=== PATIENT | female | born 1945 | race Caucasian/White ===

== ENCOUNTER 2024-02-01 12:12 | Emergency (ER) | payer OTHER, SELFPAY ==
[2024-02-01 12:14] VITALS: BP 168/80
[2024-02-01 12:30] VITALS: BMI 29.2
[2024-02-01 12:48] LABS: % Basophils 0.3 % (0-2); % Eosinophils 0.3 % (0-6); % Immature Granulocytes 0.3 % (0-0.5); % Lymphocytes 9.7 % (20.5-51.1); % Monocytes 3.2 % (1.7-9.3); % Neutrophils 86.2 % (42.2-75.2); Absolute Lymphocytes 0.7 10^3/uL (1.2-3.4); Absolute Monocytes 0.2 10^3/uL (0.1-0.6); Absolute Neutrophils 6.2 10^3/uL (1.4-6.5); Hematocrit 34.4 % (37.0-47.0); Hemoglobin 11.6 g/dL (12.0-16.0); Mean Corp Hgb Conc. 33.7 g/dL (33.0-37.0); Mean Corpuscular Hgb 26.4 pg (27.0-31.0); Mean Corpuscular Volume 78.2 fL (81.0-99.0); Mean Platelet Volume 9.3 fL (7.4-10.4); Nucleated Red Blood Cells % 0 %; Platelet Count 241 10^3/uL (130-400); Red Cell Dist. Width 14.1 % (11.5-14.5); White Blood Cell Count 7.2 10^3/uL (4.8-10.8)
[2024-02-01 13:02] LABS: ALT (SGPT) 16 U/L (0-35); AST (SGOT) 23 U/L (14-36); Albumin 4.6 g/dl (3.5-5.0); Alkaline Phosphatase 64 U/L (38-126); Blood Urea Nitrogen 16 mg/dl (7-17); Calcium 9.8 mg/dl (8.4-10.2); Carbon Dioxide 26 mmol/L (22-30); Chloride 97 mmol/L (98-107); Estimated Creatinine Clearance 49 ml/min; Glucose 147 mg/dl (70-99); Potassium 4.1 mmol/L (3.5-5.1); Sodium 132 mmol/L (135-145); Total Bilirubin 0.3 mg/dl (0.2-1.3); Total Protein 7.2 g/dl (6.3-8.2); eGFR > 60.00
[2024-02-01 13:23] VITALS: BP 143/55
--- NOTE | 2024-02-01 13:24 | ED.GENMED ---
Addendum entered and electronically signed by Tarun Cortez Jr., PA-C 02/04/24 08:11:
02/04/2024, 8 AM: Pt contacted claims to have significant improvement of symptoms. Intermediate results for ciprofloxacin. No change at this time does have close follow-up.
Original Note:
History of Present Illness
General
Chief Complaint: Abdominal Symptoms
Time Seen by Provider: 02/01/24 12:39
History of Present Illness
History of Present Illness:
78-year-old female presents to the emergency department for evaluation of left lateral abdominal pain for the past 2 days. Pain is sharp and colicky in nature associated nausea vomiting and chills. No fevers or sweating. Denies chest pain or
shortness of breath. Denies diarrhea. Denies any lower urinary tract voiding symptoms.
Past History
Past History
ED Past Medical History: CAD, GERD, HTN, Hypercholesterolemia and NIDDM
ED Past Surgical History: Cardiac (Cardiac stent 1995), Gynecological (Hysterectomy), Orthopedic (Lumbar surgery 2022, [facility]TH[facility]) and Other (appendix)
Social History
Tobacco: Non-smoker
Alcohol: None
Drug: None
Personal:
Living: with family
Employment: Retired
Review of Systems
Review of Systems
Allergies reviewed?: Yes
All Other Systems: ROS reviewed and negative except as documented in HPI and ROS
Phy Exam
Physical Exam
Physical Exam:
GEN: Well appearing, NAD, WDWN
Eyes: PERRLA, EOMs intact, no scleral icterus
HENT: NCAT, oral mucosa moist, no JVD, no cervical adenopathy.
Lungs: CTAB, no wheezes, rales, rhonchi, normal chest wall excursion
Cardiac: RRR, no M/R/G, no peripheral edema. Radial pulses 2+ bilat
Abdomen: S, NT, ND, NABS, no masses or hepatosplenomegaly
Neuro: AO x 3
MSK: No gross deformity or ecchymosis. No edema. No digital clubbing
Skin: No rashes, petechiae. Normal color, no pallor or jaundice.
Psych: Calm, cooperative, proper hygiene
Course
Orders/Labs/Results
Orders:
Orders
02/01/24 12:39
CMP [Comprehensive Metabolic Panel] Urgent
Complete Blood Count/With Diff Urgent
02/01/24 12:46
0.9% Sodium Chloride 1000 ml [Nss] 1,000 ml IV BOLUS
Ketorolac [Toradol] 15 mg IV NOW STA
02/01/24 12:47
CT Abd/pel Without Iv Or Oral Urgent
Comment:
Reason For Exam: L flank pain
02/01/24 13:17
Urinalysis Reflex To Culture Urgent
Date Specimen was Collected: 02/01/24
Time Specimen was Collected: 12:58
Urine Microscopic Reflex Cult Urgent
Urine Culture Urgent
JENNIFER Source: U
Specimen Description:
Date Specimen was Collected: 02/01/24
Time Specimen was Collected: 12:58
02/01/24 14:18
Ciprofloxacin 200 mg/[id number] [Cipro 200 mg] 100 ml IV NOW
Abnormal Lab Results
02/01/24 02/01/24
12:39 13:17
Hgb 11.6 L g/dL
(12.0-16.0)
Hct 34.4 L %
(37.0-47.0)
MCV 78.2 L fL
(81.0-99.0)
MCH 26.4 L pg
(27.0-31.0)
Absolute Lymphs (auto) 0.7 L 10^3/uL
(1.2-3.4)
Neutrophils % 86.2 H %
(42.2-75.2)
Lymphocytes % 9.7 L %
(20.5-51.1)
Sodium 132 L mmol/L
(135-145)
Chloride 97 L mmol/L
(98-107)
Glucose 147 H mg/dl
(70-99)
Urine Ketones Trace A
(Negative)
Ur Occult Blood Reflex Trace A
(Negative)
Urine Nitrite (Reflex) Positive A
(Negative)
Leukocyte Esterase Rfl 2+ A
(Negative)
Urine RBC 7-10 A /HPF
(0-2)
Urine WBC (Reflex) 80-90 A /HPF
(0-5)
Urine Bacteria (Reflex) Many A
(Negative)
02/01/24 12:39
02/01/24 12:39
Vital Signs
Initial and Last Documented VS:
Initial Vital Signs
Temp Pulse Resp BP Pulse Ox
98.5 F 80 18 168/80 99
02/01/24 12:14 02/01/24 12:14 02/01/24 12:14 02/01/24 12:14 02/01/24 12:14
Last Documented Vital Signs
Temp Pulse Resp BP Pulse Ox
98.5 F 80 18 143/55 97
02/01/24 12:14 02/01/24 12:14 02/01/24 12:14 02/01/24 13:23 02/01/24 13:30
MDM/Problems Addressed
MDM/Problems Addressed:
Since he was obtained evaluate for obstructive uropathy given the colicky nature and lack of reproducibility on exam however this was unremarkable. Workup is consistent with acute UTI. Concern for pyelonephritis given the size and nature of pain
thus we will treat with fluoroquinolones given that she has a cephalosporin allergy. First dose of IV antibiotics given in the emergency department will discharge on oral antibiotics
*Critical Care Note
Total Time (30-74mins, 75-104mins- exclusive of procedures): Not Applicable
ED Attending Note
-
Portions of this chart may have been created with voice recognition software.� Occasional wrong word or��sound alike� substitutions may have occurred due to the inherent limitations of voice recognition software.
Discharge Plan
Departure
Patient Disposition: Home (Routine Discharge)
Date of Disposition: 02/01/24
Time of Disposition: 14:37
Patient with high blood pressure during this ER visit?: No
Discharge Problem:
Urinary tract infection
Instructions: Urinary Tract Infection, Adult ED
Prescriptions:
New
ciprofloxacin HCl [Cipro] 500 mg tablet
500 mg PO BID 7 Days Qty: 14 0RF
No Action
pioglitazone [Actos] 15 mg Tablet
15 mg PO DAILY
Theragen Tablet
1 tab PO DAILY
aspirin 81 mg Tablet,Delayed Release (Dr/Ec)
81 mg PO DAILY
esomeprazole magnesium [Nexium] 40 mg Capsule,Delayed Release(Dr/Ec)
40 mg PO DAILY
ibuprofen [Advil] 200 mg Tablet
400 mg PO Q6HPRN PRN (Reason: mild pain)
diltiazem HCl 120 mg Capsule,Extended Release 24hr
120 mg PO DAILY
zolpidem [Ambien] 5 mg Tablet
5 mg PO HS
metformin 500 mg Tablet Extended Release 24 Hr
1,000 mg PO BID
rosuvastatin [Crestor] 10 mg Tablet
10 mg PO QPM
solifenacin [Vesicare] 10 mg Tablet
10 mg PO DAILY
losartan-hydrochlorothiazide 100-12.5 mg Tablet
1 tab PO DAILY
Januvia 100 mg Tablet
100 mg PO DAILY
Patient Comments:
03/26/23-patient gets free from company and mailed to the house or buy from [facility] when they visit
lutein 6 mg Tablet
6 mg PO DAILY
Referrals:
Bob Bocanegra MD [Family Provider] -
Activity Restrictions/Additional Instructions:
Return if symptoms worsen
Interventions
Interventions:
*Risk Screen - Suicide Last Done: 02/01/24 12:30
*General Assessment Last Done: 02/01/24 12:14
*Neglect/Abuse Screening Last Done: 02/01/24 12:30
ED- Fall Risk Assessment Last Done: 02/01/24 12:30
*ED COVID-19 Vaccine History Last Done: 02/01/24 12:14
RK-Hvdjfc-Uyrzrdjxym Assessment Last Done: 02/01/24 12:30
Discharge Date and Time
Print Language: ARMENIAN
[2024-02-01] MEDS: TORADOL 15 MG IV (13:35)
[2024-02-01] MEDS: NSS 1000 IV (13:35)
[2024-02-01 13:41] LABS: Urine Albumin Trace (Neg - Trace); Urine Bilirubin Negative (Negative); Urine Character Clear (Clear); Urine Color Yellow; Urine Glucose Negative (Negative); Urine Ketone Trace (Negative); Urine Leukocyte 2+ (Negative); Urine Nitrite Positive (Negative); Urine Occult Blood Trace (Negative); Urine Urobilinogen Negative (Neg - 1+); Urine pH 6.5 (5.0-9.0)
[2024-02-01 14:00] VITALS: BP 132/60
[2024-02-01 14:13] LABS: Urine Bacteria Many (Negative); Urine White Cell 80-90 /HPF (0-5)
[2024-02-01] MEDS: CIPRO 200 MG 100 IV (14:36)
[2024-02-01 15:00] VITALS: BP 121/65
== END 2024-02-01 15:57 | disposition home or self-care (01) ==
LOC: EMR 12:12
PROVIDERS: Physician Assistant; EMERGENCY PHYSICIAN Emergency Medicine; FAMILY PHYSICIAN Family Medicine
DX: N39.0 Urinary tract infection, site not specified (principal)
CPT/HCPCS: 99284; 96374; 96375; 96361; 74176; 80053; 81003; 81015; 85025; 87077; 87086; 87186